=== PATIENT | female | born 1995 | race Two or more races ===

== ENCOUNTER 2016-08-20 23:42 | Emergency (ER) | payer OTHER ==
[2016-08-21 00:10] LABS: SPECIFIC GRAVITY 1.025 (1.001-1.030); URINE BILIRUBIN NEGATIVE (NEGATIVE); URINE BLOOD TRACE (NEGATIVE); URINE GLUCOSE (UA) NEGATIVE (NEGATIVE); URINE LEUKOCYTE ESTERASE TRACE (NEGATIVE); URINE NITRITE NEGATIVE (NEGATIVE); URINE PROTEIN TRACE (NEGATIVE); URINE UROBILINOGEN NORMAL (0-1 mg/dl)
[2016-08-21 00:11] LABS: URINE APPEARANCE CLEAR; URINE COLOR YELLOW
[2016-08-21 00:14] LABS: HCG,QUALITATIVE URINE NEGATIVE
[2016-08-21 00:17] LABS: URINE BACTERIA 0; URINE RBC 0-2 /hpf; URINE WBC 0-2 /hpf
[2016-08-21] MEDS ORDERED: CEPHALEXIN 500 MG CAPSULE ONE (00:25)
== END 2016-08-21 00:30 | disposition home or self-care (01) ==
LOC: ED 23:42
DX: N39.0 Urinary tract infection, site not specified (principal)
CPT/HCPCS: 81025; 81001; 99283 ×2; A9270